=== PATIENT | female | born 1950 | race Caucasian/White ===

== ENCOUNTER → 2016-07-31 | Outpatient (CLI) | payer OTHER, MEDICARE ==
[~2016-07-31] MED LIST: ASPI81TA21 PO; ATEN50TA PO; CHOL100027 PO; FLUO20CA34 PO; IPRA1AER2 INH; LOSA1TAB38 PO; LSX20 PO; MOME200A INH; MULT-513 PO; NRV/5 PO; SIMV10TA2 PO
[2016-07-31 18:21] LABS: HEMATOCRIT 41.5 % (37-47); MEAN CELL VOLUME 90.4 fL (80-100); MEAN CORPUSCULAR HEMOGLOBIN 31.2 pg (25-34); MEAN CORPUSCULAR HGB CONC 34.5 g/dl (32-36); MEAN PLATELET VOLUME 10.6 fL (7.4-10.4); PLATELET COUNT 200 K/uL (130-400); RED BLOOD COUNT 4.59 M/uL (4.2-5.4); WHITE BLOOD COUNT 7.78 K/uL (4.8-10.8)
[2016-07-31 18:24] LABS: URINE APPEARANCE CLEAR (CLEAR); URINE BILIRUBIN NEG (NEG); URINE COLOR YELLOW; URINE NITRITE NEG (NEG); URINE SPECIFIC GRAVITY 1.016 (1.000-1.030); UROBILINOGEN NEG (NEG)
[2016-07-31 18:31] LABS: MANUAL MICROSCOPIC REQUIRED? NO; REVIEW REQ? NO
[2016-07-31 18:46] LABS: BLOOD UREA NITROGEN 14 mg/dl (7-18); BUN/CREATININE RATIO 11.1 (10-20); CALCIUM 8.9 mg/dl (8.5-10.1); CARBON DIOXIDE 29 mmol/L (21-32); CHLORIDE 106 mmol/L (98-107); GLUCOSE 104 mg/dl (70-99); PHOSPHORUS 3.3 mg/dl (2.5-4.9); POTASSIUM 3.8 mmol/L (3.5-5.1); SODIUM 144 mmol/L (136-145)
[2016-07-31 18:47] LABS: URINE PROTIEN/CREAT RATIO 0.1 (0-0.2); URINE TOTAL PROTEIN 8.8 mg/dl (0-11.9)
== END | disposition home or self-care (01) ==
LOC: C.LAB 17:47
PROVIDERS: ATTEND Internal Medicine Nephrology
DX: I12.9 Hypertensive chronic kidney disease with stage 1 through stage 4 chronic kidney disease, or unspecified chronic kidney disease (principal); N18.3 Chronic kidney disease, stage 3 (moderate); N20.0 Calculus of kidney; E55.9 Vitamin D deficiency, unspecified; Z11.59 Encounter for screening for other viral diseases

== ENCOUNTER → 2016-09-26 | Outpatient (CLI) | payer OTHER, MEDICARE | END | disposition home or self-care (01) | LOC: C.LAB 12:57 | PROVIDERS: ATTEND Physician Assistant Medical | DX: E04.2 Nontoxic multinodular goiter (principal) ==

== ENCOUNTER → 2016-10-08 | Outpatient (CLI) | payer OTHER, MEDICARE ==
--- NOTE | 2016-10-08 07:47 | DIAGNOSTIC IMAGING REPORT ---
KUB HISTORY: N20.0 [id number] COMPARISON: KUB 03/24/2015. FINDINGS: The bowel gas pattern is unremarkable. There are no dilated loops of small bowel to suggest an obstruction. There again noted a few punctate left renal calculi. No definite right renal calculi. No ureteral calculi. Small calcification within the left deep pelvis favors a phlebolith. No pneumoperitoneum or pneumatosis. IMPRESSION: Left-sided nephrolithiasis. Electronically signed by: Favio Cordon M.D. 10/08/2016 7:46 AM Dictated Date/Time: 10/08/2016 7:44 AM
== END | disposition home or self-care (01) ==
LOC: C.RAD 07:16
PROVIDERS: ATTEND Nurse Practitioner Adult Health
DX: N20.0 Calculus of kidney (principal)

== ENCOUNTER → 2016-11-06 | Outpatient (CLI) | payer OTHER, MEDICARE ==
--- NOTE | 2016-11-06 12:46 | MAMMOGRAPHY REPORT ---
BILATERAL DIGITAL SCREENING MAMMOGRAM WITH CAD: 11/06/2016 CLINICAL HISTORY: Routine screening. Patient has no complaints. TECHNIQUE: Bilateral CC and MLO views were obtained. Current study was also evaluated with a Compute r Aided Detection (CAD) system. COMPARISON: Comparison is made to exams dated: 11/02/2015 mammogram, 10/28/2014 mammogram, 10/21/2012 ma mmogram, 10/16/2011 mammogram, 10/10/2010 mammogram, and 09/01/2009 mammogram - [facility]. BREAST COMPOSITION: There are scattered areas of fibroglandular density in both breasts. FINDINGS: There is a benign rim calcification in the right upper outer quadrant. A stable circumscri bed reniform mass in the superior right breast on the MLO view most likely represents an intramammary lymph node. No suspicious mass, architectural distortion or cluster of suspicious microcalcificatio ns is seen. IMPRESSION: ACR BI-RADS CATEGORY 1: NEGATIVE There is no mammographic evidence of malignancy. A 1 year screening mammogram is recommended. The pa tient will receive written notification of the results. Approximately 10% of breast cancers are not detected with mammography. A negative mammographic report should not delay biopsy if a clinically suggestive mass is present. Tiffany Diamond M.D. ay/:11/06/2016 08:06:58 Critical Care Registered Nurse: Mana MCCURDY(Denis)(M), [facility] letter sent: Normal 1/2 BI-RADS Code: ACR BI-RADS Category 1: Negative
== END | disposition home or self-care (01) ==
LOC: C.MAMM 07:28
PROVIDERS: ATTEND Family Medicine
DX: Z12.31 Encounter for screening mammogram for malignant neoplasm of breast (principal)

== ENCOUNTER → 2017-02-07 | Outpatient (CLI) | payer OTHER, MEDICARE ==
[2017-02-07 18:02] LABS: HEMATOCRIT 40.3 % (37-47); MEAN CORPUSCULAR HEMOGLOBIN 31.3 pg (25-34); MEAN CORPUSCULAR HGB CONC 34.7 g/dl (32-36); MEAN PLATELET VOLUME 10.1 fL (7.4-10.4); PLATELET COUNT 209 K/uL (130-400); RED BLOOD COUNT 4.48 M/uL (4.2-5.4); WHITE BLOOD COUNT 7.25 K/uL (4.8-10.8)
[2017-02-07 18:15] LABS: URINE APPEARANCE CLOUDY (CLEAR); URINE BILIRUBIN NEG (NEG); URINE COLOR YELLOW; URINE EPITHELIAL CELL AUTO >30 /lpf (0-5); URINE NITRITE NEG (NEG); URINE SPECIFIC GRAVITY 1.024 (1.000-1.030); UROBILINOGEN NEG (NEG)
[2017-02-07 18:16] LABS: MANUAL MICROSCOPIC REQUIRED? NO; REVIEW REQ? NO
[2017-02-07 18:32] LABS: BLOOD UREA NITROGEN 16 mg/dl (7-18); BUN/CREATININE RATIO 13.4 (10-20); CALCIUM 8.5 mg/dl (8.5-10.1); CARBON DIOXIDE 30 mmol/L (21-32); CHLORIDE 109 mmol/L (98-107); GLUCOSE 95 mg/dl (70-99); PHOSPHORUS 2.9 mg/dl (2.5-4.9); POTASSIUM 3.8 mmol/L (3.5-5.1); SODIUM 141 mmol/L (136-145)
[2017-02-07 18:41] LABS: URINE PROTIEN/CREAT RATIO 0.1 (0-0.2)
== END | disposition home or self-care (01) ==
LOC: C.LAB 17:40
PROVIDERS: ATTEND Internal Medicine Nephrology
DX: I10 Essential (primary) hypertension (principal); N18.3 Chronic kidney disease, stage 3 (moderate); N20.0 Calculus of kidney; E55.9 Vitamin D deficiency, unspecified

== ENCOUNTER → 2017-08-12 | Outpatient (CLI) | payer OTHER, MEDICARE ==
[2017-08-12 09:40] LABS: HEMATOCRIT 40.3 % (37-47); HEMOGLOBIN 13.7 g/dL (12.0-16.0); MEAN CELL VOLUME 90.2 fL (80-100); MEAN CORPUSCULAR HEMOGLOBIN 30.6 pg (25-34); MEAN PLATELET VOLUME 10.2 fL (7.4-10.4); PLATELET COUNT 222 K/uL (130-400); RED CELL DISTRIBUTION WIDTH CV 13.3 % (11.5-14.5); WHITE BLOOD COUNT 7.15 K/uL (4.8-10.8)
[2017-08-12 10:04] LABS: ALBUMIN 3.6 gm/dl (3.4-5.0); BLOOD UREA NITROGEN 13 mg/dl (7-18); CALCIUM 8.4 mg/dl (8.5-10.1); CARBON DIOXIDE 27 mmol/L (21-32); CREATININE 1.15 mg/dl (0.60-1.20); GLUCOSE 103 mg/dl (70-99); PHOSPHORUS 3.4 mg/dl (2.5-4.9); POTASSIUM 3.9 mmol/L (3.5-5.1); SODIUM 139 mmol/L (136-145)
== END | disposition home or self-care (01) ==
LOC: C.LAB 07:12
PROVIDERS: ATTEND Internal Medicine Nephrology
DX: I12.9 Hypertensive chronic kidney disease with stage 1 through stage 4 chronic kidney disease, or unspecified chronic kidney disease (principal); R31.9 Hematuria, unspecified; N18.3 Chronic kidney disease, stage 3 (moderate); N20.0 Calculus of kidney; E55.9 Vitamin D deficiency, unspecified

== ENCOUNTER 2022-08-02 08:00 | Inpatient (IN) ==
--- NOTE | 2022-07-26 15:56 | Anesthesiology Consultation ---
Date of Service July 26, 2022 Assessment & Plan (1) Encounter for pre-operative examination: Plan - COVID screening: Per drafter on 07/26/2022: Travel screen negative, no known COVID-19 positive contacts or current COVID-19 related symptoms in past 2 weeks. To surgeon's discretion if preop COVID testing is needed. Chart Review Chart Review: Acceptable Risk for Surgery and Patient NOT seen in Pre Admission Testing History Surgery Operation Date: 08/02/22 14:20 Proposed Procedures p Laparoscopic Right Hemicolectomy, Possible Open Hemicolectomy - Jed Watson, Height/Weight Height: 5 ft 1.5 in Weight: 73.028 kg Allergies Allergy/AdvReac Type Severity Reaction Status Date / Time clavulanic acid Allergy Unknown Nausea Verified 07/26/22 15:08 [From Augmentin] amoxicillin [From Augmentin] AdvReac Unknown Nausea Verified 07/26/22 15:08 Medications Home Medications Medication Instructions Recorded Confirmed Last Taken albuterol sulfate 90 mcg/actuation 1 - 2 inh inhalation QID PRN 09/26/21 07/26/22 Unknown aerosol inhaler Shortness Of Breath #8.5 grams cholecalciferol (vitamin D3) 50 50 mcg PO QAM 10/23/21 07/26/22 07/08/22 09:00 mcg (2,000 unit) capsule amlodipine 5 mg tablet 5 mg PO QAM #90 tabs 03/26/22 07/26/22 07/08/22 09:00 furosemide 20 mg tablet 20 mg PO BID #180 tabs 06/11/22 07/26/22 07/08/22 17:00 sertraline 100 mg tablet 100 mg PO QAM 06/28/22 07/26/22 07/08/22 09:00 alendronate 70 mg tablet (Fosamax) 70 mg PO Q7D 07/03/22 07/26/22 07/08/22 09:00 atenolol 50 mg tablet 50 mg PO HS 07/03/22 07/26/22 07/08/22 09:00 losartan 100 mg tablet 100 mg PO HS 07/03/22 07/26/22 07/08/22 20:00 simvastatin 20 mg tablet 20 mg PO HS 07/03/22 07/26/22 07/08/22 20:00 Past Medical History Medical History Balance problem ONGOING FOR FEW YRS, "will be talking w/, since taking sertraline, has gotten a little worse" Chronic bronchitis HX-NO RECENT Chronic obstructive pulmonary disease (COPD) inhaler prn - NO RECENT FLARE UPS Colon cancer dx 07/09/[address] Shirley Depression with anxiety History of viral meningitis Hyperlipidemia Hypertension Kidney stones hx Osteoarthritis Stage III chronic kidney disease FOLLOWS W/ DR. MARSHALL Thyroid nodule monitoring-next appt. 09/2022 Past Family History Family History Sister Breast cancer Mother Ovarian cancer Father Alzheimer disease Small cell carcinoma Renal Other No family history of adverse response to anesthesia Denies family history of Prostate cancer Myocardial infarction Colorectal cancer Past Surgical History Surgical History (Updated 07/26/22 @ 15:54 by Alina Fernandez PA-C) History of cataract surgery B/L done 2021 History of colonoscopy History of D&C History of lithotripsy History of repair of right rotator cuff 07/14/19 LMA#4 + PNB. History of tooth extraction ALL TEETH S/P tonsillectomy Status post biopsy of thyroid gland HX BENIGN Social History Smoking Status: Current every day smoker tobacco type: cigarettes Smoking cigarettes per day: 20 Do You Dip or Chew Tobacco: No Hx Alcohol Use: Yes Alcohol type: hard liquor alcohol intake frequency: a few times a week Hx Substance Use: No substance use type: does not use Lab Results Anesthesia Preop Results Results Anesthesia Widget: WBC 6.57 K/ul (4.8-10.8) 07/24/22 Hgb 13.8 g/dl (12.0-16.0) 07/24/22 Hct 42.1 % (37.0-47.0) 07/24/22 Plt 187 K/uL (130-400) 07/24/22 Na 141 mmol/L (136-145) 07/24/22 K 3.9 mmol/L (3.5-5.1) 07/24/22 Cl 108 mmol/L (98-107) H 07/24/22 CO2 30 mmol/L (21-32) 07/24/22 BUN 15 mg/dl (6-23) 07/24/22 Creat 1.14 mg/dl (0.6-1.2) 07/24/22 Glucose Level 101 mg/dl (70-99(Fasting)) H 07/24/22 PT 9.9 Seconds (9.0-12.0) 07/10/22 INR 0.9 (0.9-1.1) 07/10/22 Urine Color Yellow 06/26/22 Urine Appearance Clear (Clear) 06/26/22 Urine pH 5.5 (4.5-7.5) 06/26/22 Urine Specific Skippers 1.006 (1.000-1.030) 06/26/22 Urine Protein Negative (Negative) 06/26/22 Urine Glucose (UA) Negative (Negative) 06/26/22 Urine Ketones Negative (Negative) 06/26/22 Urine Blood Negative (Negative) 06/26/22 Urine Nitrite Negative (Negative) 06/26/22 Urine Bilirubin Negative (Negative) 06/26/22 Urine Urobilinogen Negative (Negative) 06/26/22 Urine Leukocyte Esterase Negative (Negative) 06/26/22 Testing Electrocardiogram Date: 07/24/22 NSR, rate 62 bpm Other Testing Chest, abdomen and pelvis CT 07/17/22 Thyroid: Enlarged and heterogeneous. Thoracic aorta: There is atherosclerotic calcification of the thoracic aorta, which is normal in caliber and demonstrates standard 3-vessel arch anatomy. No dissection is seen. Pulmonary vasculature: The pulmonary trunk is normal in caliber. There are no filling defects identified in the central pulmonary vessels to indicate pulmonary embolus. Note that this examination was not protocoled for evaluation of the pulmonary arteries. Heart: The heart is enlarged and without pericardial effusion. There are coronary artery calcifications. Lungs and pleural spaces: There is no airspace consolidation or pleural effusion. The trachea and central airways appear clear. There are scattered foci of parenchymal scarring/atelectasis. A 2 mm nodule in the lingula on image #196 is unchanged. No new or enlarging pulmonary lesion is seen. A calcified granuloma is seen in the right lower lobe. Mediastinum: There is a 2.5 x 2.3 cm heterogeneously enhancing nodule in the anterior mediastinum seen on image #151. No additional mediastinal lesion is identified. Bony thorax: The skeletal structures are osteopenic. Mild degenerative change is seen throughout the thoracic spine. No lytic or blastic lesions are identified. ABDOMEN AND PELVIS: Liver: The contrast-enhanced liver is normal in size, contour, and attenuation. There is no intrahepatic biliary ductal dilatation. The hepatic veins and portal veins are patent. Gallbladder: There are calcified gallstone without CT evidence of acute cholecystitis. Adenomyomatosis is suggested in the fundal region. Kidneys: The contrast enhanced kidneys are normal in size and without hydronephrosis. The kidneys enhance symmetrically. A 9 mm indeterminate lesion arises from the upper pole of the left kidney on axial image #98. There are at least 2 nonobstructing left renal calculi which measure up to 4 mm. Abdominal vasculature: The abdominal aorta is normal in course and caliber no ting moderate to advanced atherosclerotic calcification. Bowel: There is no bowel obstruction. Enteric contrast reaches the rectum. There is moderate diverticulosis of left colon without CT evidence of acute diverticulitis. Wall thickening suggested at the base of the cecum on axial image #257. The appendix is well-visualized and normal. Peritoneum: There is no intraperitoneal free air or abdominal ascites. There is a fat-containing umbilical hernia. Pelvic viscera: The bladder is decompressed and not well assessed. The uterus is normal as visualized. A 2.5 cm simple cystic focus in the left ovary is unchanged, as is a 1.6 cm cystic focus in the right ovary. Skeletal structures: The skeletal structures are osteopenic. There is mild lumbosacral spondylosis. No lytic or blastic lesions are seen. IMPRESSION: 1. Asymmetric wall thickening is suggested at the base of the cecum. This may represent the site of the reported colonic neoplasm. Correlate with colonoscopy results. 2. There is no evidence of metastatic disease in the abdomen or pelvis. 3. There is an indeterminant 2.5 cm heterogeneously enhancing lesion in the anterior mediastinum. This would be atypical for an isolated colonic metastases, and a primary anterior mediastinal lesion such as a thymic neoplasm is strongly favored. Cardiothoracic surgical evaluation is recommended. 4. No additional suspicious findings are identified in the thorax. 5. There is no airspace consolidation or pleural effusion. 6. Mild cardiomegaly. 7. Colonic diverticulosis without CT evidence of acute diverticulitis. 8. Cholelithiasis. 9. Left-sided nephrolithiasis. 10. A 9 mm indeterminate lesion arises from the upper pole of the left kidney. An enhancing lesion is not excluded. A contrast-enhanced CT or renal protocol MRI is recommended for further evaluation. 11. Indeterminant cystic foci are again seen in both ovaries. 12. Additional findings as above. Chest CTA 04/24/22 1. No evidence of pulmonary embolism. 2. A few tiny pulmonary nodules are seen as above.
[~2022-08-02 08:00] MED LIST changes: +ACETAMINOPHEN 1000 MG/100 ML IV IV ONE; -ASPI81TA21 PO; -ATEN50TA PO; -CHOL100027 PO; +CIPROFLOXACIN / D5W 400 MG/200 ML BAG IV SCH; +FAMOTIDINE/PF 20 MG/2 ML VIAL IV ONE; -FLUO20CA34 PO; -IPRA1AER2 INH; +LACTATED RINGER'S 1,000 ML IV SCH; -LOSA1TAB38 PO; -LSX20 PO; -MOME200A INH; -MULT-513 PO; -NRV/5 PO; +ROCURONIUM BROMIDE 10 MG/ML 5 ML VIAL IV ONE; -SIMV10TA2 PO; +metroNIDAZOLE 500 MG/100 ML BAG IV SCH
--- NOTE | 2022-08-02 08:30 | History & Physical Bridge Note ---
Date of Service August 02, 2022 History & Physical Bridge Note I have examined the patient, reviewed the History & Physical and in the interval since the performance of the History & Physical I have noted the following changes of clinical significance: no changes noted
--- NOTE | 2022-08-02 08:56 | Anesthesiology Consultation ---
Date of Service August 02, 2022 Assessment & Plan Chart Review Chart Review: Acceptable Risk for Surgery Consults Requested none ASA ASA3 Proposed Anesthesia Anesthesia Type: General History Surgery Operation Date: 08/02/22 10:05 Proposed Procedures p Laparoscopic Right Hemicolectomy, Possible Open Hemicolectomy - Jed Watson, DO Height/Weight Height: 5 ft 1.5 in Weight: 73.028 kg Allergies Allergy/AdvReac Type Severity Reaction Status Date / Time amoxicillin [From Augmentin] AdvReac Mild Nausea Verified 08/02/22 08:36 clavulanic acid AdvReac Mild Nausea Verified 08/02/22 08:36 [From Augmentin] Medications Home Medications Medication Instructions Recorded Confirmed Last Taken albuterol sulfate 90 mcg/actuation 1 - 2 inh inhalation QID PRN 09/26/21 08/02/22 Unknown aerosol inhaler Shortness Of Breath #8.5 grams cholecalciferol (vitamin D3) 50 50 mcg PO QAM 10/23/21 08/02/22 08/01/22 12:00 mcg (2,000 unit) capsule amlodipine 5 mg tablet 5 mg PO QAM #90 tabs 03/26/22 08/02/22 08/01/22 12:00 furosemide 20 mg tablet 20 mg PO BID #180 tabs 06/11/22 08/02/22 08/01/22 20:00 sertraline 100 mg tablet 100 mg PO QAM 06/28/22 08/02/22 08/01/22 12:00 alendronate 70 mg tablet (Fosamax) 70 mg PO Q7D 07/03/22 08/02/22 07/29/22 12:00 losartan 100 mg tablet 100 mg PO HS 07/03/22 08/02/22 08/01/22 20:00 simvastatin 20 mg tablet 20 mg PO HS 07/03/22 08/02/22 08/01/22 20:00 atenolol 50 mg tablet 50 mg PO HS #90 tabs 07/31/22 08/02/22 08/01/22 20:00 Active Medications Generic Name Dose Route Start Last Admin Trade Name Freq PRN Reason Stop Dose Admin Lactated Ringer's 1,000 mls @ 15 mls/hr 08/02/22 06:00 08/02/22 09:10 Lr IV 08/03/22 05:59 15 mls/hr .Q24H ZOE Administration Past Medical History Medical History Balance problem ONGOING FOR FEW YRS, "will be talking w/, since taking sertraline, has gotten a little worse" Chronic bronchitis HX-NO RECENT Chronic obstructive pulmonary disease (COPD) inhaler prn - NO RECENT FLARE UPS Colon cancer dx 07/09/[address] Case Depression with anxiety History of viral meningitis Hyperlipidemia Hypertension Kidney stones hx Osteoarthritis Stage III chronic kidney disease FOLLOWS W/ DR. MARSHALL Thyroid nodule monitoring-next appt. 09/2022 Past Family History Family History Sister Breast cancer Mother Ovarian cancer Father Alzheimer disease Small cell carcinoma Renal Other No family history of adverse response to anesthesia Denies family history of Prostate cancer Myocardial infarction Colorectal cancer Past Surgical History Surgical History History of cataract surgery B/L done 2021 History of colonoscopy History of D&C History of lithotripsy History of repair of right rotator cuff 07/14/19 LMA#4 + PNB. History of tooth extraction ALL TEETH S/P tonsillectomy Status post biopsy of thyroid gland HX BENIGN Social History Smoking Status: Current every day smoker tobacco type: cigarettes Smoking cigarettes per day: 20 Do You Dip or Chew Tobacco: No Hx Alcohol Use: Yes Alcohol type: hard liquor alcohol intake frequency: a few times a week Hx Substance Use: No substance use type: does not use Physical Exam Vital Signs Last Vital Signs Temp 36.7 C 08/02/22 08:47 Pulse 83 08/02/22 08:47 Resp 20 08/02/22 08:47 BP 123/66 08/02/22 08:47 Pulse Ox 95 08/02/22 08:47 O2 Del Method Room Air 08/02/22 08:47 Testing Electrocardiogram Date: 07/24/22 NSR, rate 62 bpm Other Testing Chest, abdomen and pelvis CT 07/17/22 Thyroid: Enlarged and heterogeneous. Thoracic aorta: There is atherosclerotic calcification of the thoracic aorta, which is normal in caliber and demonstrates standard 3-vessel arch anatomy. No dissection is seen. Pulmonary vasculature: The pulmonary trunk is normal in caliber. There are no filling defects identified in the central pulmonary vessels to indicate pulmonary embolus. Note that this examination was not protocoled for evaluation of the pulmonary arteries. Heart: The heart is enlarged and without pericardial effusion. There are coronary artery calcifications. Lungs and pleural spaces: There is no airspace consolidation or pleural effusion. The trachea and central airways appear clear. There are scattered foci of parenchymal scarring/atelectasis. A 2 mm nodule in the lingula on image #196 is unchanged. No new or enlarging pulmonary lesion is seen. A calcified granuloma is seen in the right lower lobe. Mediastinum: There is a 2.5 x 2.3 cm heterogeneously enhancing nodule in the anterior mediastinum seen on image #151. No additional mediastinal lesion is identified. Bony thorax: The skeletal structures are osteopenic. Mild degenerative change is seen throughout the thoracic spine. No lytic or blastic lesions are identified. ABDOMEN AND PELVIS: Liver: The contrast-enhanced liver is normal in size, contour, and attenuation. There is no intrahepatic biliary ductal dilatation. The hepatic veins and portal veins are patent. Gallbladder: There are calcified gallstone without CT evidence of acute cholecystitis. Adenomyomatosis is suggested in the fundal region. Kidneys: The contrast enhanced kidneys are normal in size and without hydronephrosis. The kidneys enhance symmetrically. A 9 mm indeterminate lesion arises from the upper pole of the left kidney on axial image #98. There are at least 2 nonobstructing left renal calculi which measure up to 4 mm. Abdominal vasculature: The abdominal aorta is normal in course and caliber noting moderate to advanced atherosclerotic calcification. Bowel: There is no bowel obstruction. Enteric contrast reaches the rectum. There is moderate diverticulosis of left colon without CT evidence of acute diverticulitis. Wall thickening suggested at the base of the cecum on axial image #257. The appendix is well-visualized and normal. Peritoneum: There is no intraperitoneal free air or abdominal ascites. There is a fat-containing umbilical hernia. Pelvic viscera: The bladder is decompressed and not well assessed. The uterus is normal as visualized. A 2.5 cm simple cystic focus in the left ovary is unchanged, as is a 1.6 cm cystic focus in the right ovary. Skeletal structures: The skeletal structures are osteopenic. There is mild lumbosacral spondylosis. No lytic or blastic lesions are seen. IMPRESSION: 1. Asymmetric wall thickening is suggested at the base of the cecum. This may represent the site of the reported colonic neoplasm. Correlate with colonoscopy results. 2. There is no evidence of metastatic disease in the abdomen or pelvis. 3. There is an indeterminant 2.5 cm heterogeneously enhancing lesion in the anterior mediastinum. This would be atypical for an isolated colonic metastases, and a primary anterior mediastinal lesion such as a thymic neoplasm is strongly favored. Cardiothoracic surgical evaluation is recommended. 4. No additional suspicious findings are identified in the thorax. 5. There is no airspace consolidation or pleural effusion. 6. Mild cardiomegaly. 7. Colonic diverticulosis without CT evidence of acute diverticulitis. 8. Cholelithiasis. 9. Left-sided nephrolithiasis. 10. A 9 mm indeterminate lesion arises from the upper pole of the left kidney. An enhancing lesion is not excluded. A contrast-enhanced CT or renal protocol MRI is recommended for further evaluation. 11. Indeterminant cystic foci are again seen in both ovaries. 12. Additional findings as above. Chest CTA 04/24/22 1. No evidence of pulmonary embolism. 2. A few tiny pulmonary nodules are seen as above.
[2022-08-02] MEDS ORDERED: MIDAZOLAM HCL 1 MG/ML 2ML VIAL ONE (10:30)
[2022-08-02] MEDS ORDERED: fentaNYL citrate 100 MCG/2 ML VIAL ONE ×2 (10:32→12:03)
[2022-08-02] MEDS ORDERED: LIDOCAINE 2% MPF LOCAL 5 ML VIAL INFIL ONE (10:33)
[2022-08-02] MEDS ORDERED: PROPOFOL IV EMULSION 10 MG/ML 20 ML VIAL IV ONE (10:34)
[2022-08-02] MEDS ORDERED: DEXAMETHASONE SOD INJ 4 MG/ML VIAL ONE (10:34)
[2022-08-02] MEDS ORDERED: ONDANSETRON INJ 2 MG/ML 2 ML VIAL ONE (10:34)
[2022-08-02] MEDS ORDERED: BUPIVACAINE/EPINEPHRINE 0.5% MPF 1:200,000 30 ML VIAL ONE (10:36)
[2022-08-02] MEDS ORDERED: SUGAMMADEX SODIUM 200 MG/2 ML VIAL IV ONE (12:36)
--- NOTE | 2022-08-02 13:01 | Operative Report ---
PG Post Operative Report Pre & Post Diagnosis Operation Date: 08/02/22 10:05 Pre-Op Diagnosis: Colon Cancer Post-Op Diagnosis: Colon Cancer I identified the patient and participated in the time-out.: Yes Procedure Operation Date: 08/02/22 10:05 Actual Procedures p Laparoscopic Right Hemicolectomy(Right) - Jed Watson DO Surgeon Jed Watson DO Area Cleaner ayana Qureshi Estimated Blood Loss 20 Findings Consistent with Post-Op Diagnosis Specimens terminal ileum, right colon, portion of transverse colon Description of Procedure After informed consent was obtained the patient was taken to the operating room and placed in supine position. After successful intubation an orogastric tube as well as Laguerre catheter were both placed. The abdomen was then sterilely prepped and draped in usual fashion. I began with a periumbilical incision with an 11 blade scalpel and carried this down through the soft tissue using cautery. Anterior fascia was opened using cautery and two #0 Vicryl stay sutures were placed. Peritoneum was elevated with hemostats and incised under direct vision using a Metzenbaum scissor. A finger sweep was performed. A 12 mm Mooney trocar was placed and the abdomen was insufflated to 18 mmHg. Laparoscope was inserted and the abdomen examined 360 degrees. A suprapubic 5 mm port and a left lower quadrant 12 mm port and eventually a right upper quadrant 5 mm port would all be placed under direct visualization. The patient was placed in a Trendelenburg position and slightly airplaned to the left. I evaluated the cecum. I was unable to palpate the mass itself. I began by mobilizing laterally along the white line of Toldt using blunt dissection as well as small amounts of harmonic scalpel. Once I had the right colon freed up around the hepatic flexure I then transected the terminal ileum several inches proximal to the cecum using a CIELO brown cartridge 60 mm stapler. I then began taking down the mesentery of the right colon using the harmonic scalpel. Next I found a spot on the transverse colon proximal to the middle colic vessels and transected the colon using a CIELO brown cartridge 60 mm stapler. I divided the omentum using the harmonic scalpel. I then freed up the hepatic flexure again using primarily blunt dissection. I took down the remainder of the transverse colon and right colon mesentery again using the harmonic scalpel. This freed up the entire terminal ileum cecum right colon and proximal transverse colon. We then extended the right upper quadrant trocar site including the fascia. I was able to remove the entire specimen. I did open it on the back table to be sure the mass was in there. It was right in the cecum near the terminal ileum. I then rescrubbed. Next I was able to deliver the staple line of the transverse colon as well as the staple line of the distal ileum through the extended incision. I performed a [id number] anastomosis using a CIELO 60 mm brown cartridge. I hand closed the common enterotomy using 3-0 Monocryl in a running fashion for mucosal/serosal layers followed by 3-0 silk in Lembert fashion for serosal layer. I also placed 3-0 silk crotch stitch. We then placed the anastomosis back into the abdominal cavity and both changed our gloves. I closed the fascia of this incision using 0 PDS in running fashion. I then reinsufflated the abdomen and examined the anastomosis. It was intact without tension. There was no mesenteric twisting. There was adequate hemostasis. I did irrigate the right upper quadrant right lower quadrant and pelvis. All the trocars were subsequently removed and the abdomen desufflated. The fascia of the camera port was closed using 0 Vicryl in [id number] fashion. All the wounds were irrigated. The larger incision I closed over quarter inch Esbon drain using skin radha. The remainder of the incisions were closed using skin radha. Dressings were applied. The patient was awakened extubated and transferred recovery in stable condition. My physician assistant clinical nurse manager was present for the entire case. She was instrumental in providing exposure running the camera assisting with the anastomosis wound closure and dressing placement. I attest to the content of the Intraoperative Record and any orders documented therein. Any exceptions are noted below.
--- NOTE | 2022-08-02 13:02 | Anesthesiology Consultation ---
Date of Service August 02, 2022 Assessment & Plan Chart Review Chart Review: Acceptable Risk for Surgery Consults Requested none ASA ASA3 Proposed Anesthesia Anesthesia Type: General Risk / Benefits Reviewed With: PT / POA / Parent / Guardian, Accepts Plan and Informed Consent Obtained History Surgery Operation Date: 08/02/22 10:05 Proposed Procedures p Laparoscopic Right Hemicolectomy, Possible Open Hemicolectomy - Jed Watson, DO Height/Weight Height: 5 ft 1.5 in Weight: 73.028 kg Allergies Allergy/AdvReac Type Severity Reaction Status Date / Time amoxicillin [From Augmentin] AdvReac Mild Nausea Verified 08/02/22 08:36 clavulanic acid AdvReac Mild Nausea Verified 08/02/22 08:36 [From Augmentin] Medications Home Medications Medication Instructions Recorded Confirmed Last Taken albuterol sulfate 90 mcg/actuation 1 - 2 inh inhalation QID PRN 09/26/21 08/02/22 Unknown aerosol inhaler Shortness Of Breath #8.5 grams cholecalciferol (vitamin D3) 50 50 mcg PO QAM 10/23/21 08/02/22 08/01/22 12:00 mcg (2,000 unit) capsule amlodipine 5 mg tablet 5 mg PO QAM #90 tabs 03/26/22 08/02/22 08/01/22 12:00 furosemide 20 mg tablet 20 mg PO BID #180 tabs 06/11/22 08/02/22 08/01/22 20:00 sertraline 100 mg tablet 100 mg PO QAM 06/28/22 08/02/22 08/01/22 12:00 alendronate 70 mg tablet (Fosamax) 70 mg PO Q7D 07/03/22 08/02/22 07/29/22 12:00 losartan 100 mg tablet 100 mg PO HS 07/03/22 08/02/22 08/01/22 20:00 simvastatin 20 mg tablet 20 mg PO HS 07/03/22 08/02/22 08/01/22 20:00 atenolol 50 mg tablet 50 mg PO HS #90 tabs 07/31/22 08/02/22 08/01/22 20:00 Active Medications Generic Name Dose Route Start Last Admin Trade Name Freq PRN Reason Stop Dose Admin Lactated Ringer's 1,000 mls @ 15 mls/hr 08/02/22 06:00 08/02/22 10:40 Lr IV 08/03/22 05:59 Infused .Q24H ZOE Infusion Ciprofloxacin 400 mg in 200 mls @ 100 mls/hr 08/02/22 06:00 08/02/22 10:40 Cipro / D5w IV 08/02/22 18:00 100 mls/hr PREOP ZOE Administration Past Medical History Medical History Balance problem ONGOING FOR FEW YRS, "will be talking w/dr, since taking sertraline, has gotten a little worse" Chronic bronchitis HX-NO RECENT Chronic obstructive pulmonary disease (COPD) inhaler prn - NO RECENT FLARE UPS Colon cancer dx 07/09/[address] Case Depression with anxiety History of viral meningitis Hyperlipidemia Hypertension Kidney stones hx Osteoarthritis Stage III chronic kidney disease FOLLOWS W/ DR. MARSHALL Thyroid nodule monitoring-next appt. 09/2022 Exercise / Class Metabolic Activity II 4-5 Yardwork/Stairs/Walk up hill Past Family History Family History Sister Breast cancer Mother Ovarian cancer Father Alzheimer disease Small cell carcinoma Renal Other No family history of adverse response to anesthesia Denies family history of Prostate cancer Myocardial infarction Colorectal cancer Past Surgical History Surgical History History of cataract surgery B/L done 2021 History of colonoscopy History of D&C History of lithotripsy History of repair of right rotator cuff 07/14/19 LMA#4 + PNB. History of tooth extraction ALL TEETH S/P tonsillectomy Status post biopsy of thyroid gland HX BENIGN Past Anesthesia History No Hx of Anesthesia Complications and No Family Hx of Anesthesia Complications History of PONV No Hx of PONV and No Hx of Motion Sickness Social History Smoking Status: Current every day smoker tobacco type: cigarettes Smoking cigarettes per day: 20 Do You Dip or Chew Tobacco: No Hx Alcohol Use: Yes Alcohol type: hard liquor alcohol intake frequency: a few times a week Hx Substance Use: No substance use type: does not use Physical Exam Vital Signs Last Vital Signs Temp 36.7 C 08/02/22 08:47 Pulse 83 08/02/22 08:47 Resp 20 08/02/22 08:47 BP 123/66 08/02/22 08:47 Pulse Ox 95 08/02/22 08:47 O2 Del Method Room Air 08/02/22 08:47 Constitutional no acute distress ENMT Thyromental Distance: > or= 3.5 Finger Breadths Mallampati Class: II Neck normal visual inspection Respiratory normal respiratory effort; no respiratory distress Auscultation: lungs clear to auscultation bilaterally Cardiovascular Rate/Rhythm: regular rate and regular rhythm Heart Sounds: no murmur Psychiatric Orientation: alert and oriented x 3 Testing Laboratory Results Blood Type B Positive 08/02/22 08:41 Antibody Screen NEGATIVE 08/02/22 08:41 Electrocardiogram Date: 07/24/22 NSR, rate 62 bpm Other Testing Chest, abdomen and pelvis CT 07/17/22 Thyroid: Enlarged and heterogeneous. Thoracic aorta: There is atherosclerotic calcification of the thoracic aorta, which is normal in caliber and demonstrates standard 3-vessel arch anatomy. No dissection is seen. Pulmonary vasculature: The pulmonary trunk is normal in caliber. There are no filling defects identified in the central pulmonary vessels to indicate pulmonary embolus. Note that this examination was not protocoled for evaluation of the pulmonary arteries. Heart: The heart is enlarged and without pericardial effusion. There are gurwinder nary artery calcifications. Lungs and pleural spaces: There is no airspace consolidation or pleural effusion. The trachea and central airways appear clear. There are scattered foci of parenchymal scarring/atelectasis. A 2 mm nodule in the lingula on image #196 is unchanged. No new or enlarging pulmonary lesion is seen. A calcified granuloma is seen in the right lower lobe. Mediastinum: There is a 2.5 x 2.3 cm heterogeneously enhancing nodule in the anterior mediastinum seen on image #151. No additional mediastinal lesion is identified. Bony thorax: The skeletal structures are osteopenic. Mild degenerative change is seen throughout the thoracic spine. No lytic or blastic lesions are identified. ABDOMEN AND PELVIS: Liver: The contrast-enhanced liver is normal in size, contour, and attenuation. There is no intrahepatic biliary ductal dilatation. The hepatic veins and portal veins are patent. Gallbladder: There are calcified gallstone without CT evidence of acute cholecystitis. Adenomyomatosis is suggested in the fundal region. Kidneys: The contrast enhanced kidneys are normal in size and without hydronephrosis. The kidneys enhance symmetrically. A 9 mm indeterminate lesion arises from the upper pole of the left kidney on axial image #98. There are at least 2 nonobstructing left renal calculi which measure up to 4 mm. Abdominal vasculature: The abdominal aorta is normal in course and caliber noting moderate to advanced atherosclerotic calcification. Bowel: There is no bowel obstruction. Enteric contrast reaches the rectum. There is moderate diverticulosis of left colon without CT evidence of acute diverticulitis. Wall thickening suggested at the base of the cecum on axial image #257. The appendix is well-visualized and normal. Peritoneum: There is no intraperitoneal free air or abdominal ascites. There is a fat-containing umbilical hernia. Pelvic viscera: The bladder is decompressed and not well assessed. The uterus is normal as visualized. A 2.5 cm simple cystic focus in the left ovary is unchanged, as is a 1.6 cm cystic focus in the right ovary. Skeletal structures: The skeletal structures are osteopenic. There is mild lumbosacral spondylosis. No lytic or blastic lesions are seen. IMPRESSION: 1. Asymmetric wall thickening is suggested at the base of the cecum. This may represent the site of the reported colonic neoplasm. Correlate with colonoscopy results. 2. There is no evidence of metastatic disease in the abdomen or pelvis. 3. There is an indeterminant 2.5 cm heterogeneously enhancing lesion in the anterior mediastinum. This would be atypical for an isolated colonic metastases, and a primary anterior mediastinal lesion such as a thymic neoplasm is strongly favored. Cardiothoracic surgical evaluation is recommended. 4. No additional suspicious findings are identified in the thorax. 5. There is no airspace consolidation or pleural effusion. 6. Mild cardiomegaly. 7. Colonic diverticulosis without CT evidence of acute diverticulitis. 8. Cholelithiasis. 9. Left-sided nephrolithiasis. 10. A 9 mm indeterminate lesion arises from the upper pole of the left kidney. An enhancing lesion is not excluded. A contrast-enhanced CT or renal protocol MRI is recommended for further evaluation. 11. Indeterminant cystic foci are again seen in both ovaries. 12. Additional findings as above. Chest CTA 04/24/22 1. No evidence of pulmonary embolism. 2. A few tiny pulmonary nodules are seen as above.
[2022-08-02] MEDS ORDERED: ATROPINE SULFATE 0.1 MG/ML 10ML SYR IV PRN (13:08)
[2022-08-02] MEDS ORDERED: ONDANSETRON INJ 2 MG/ML 2 ML VIAL IV PRN (13:08)
[2022-08-02] MEDS ORDERED: ePHEDrine sulfate 50 MG/ML AMP IV PRN (13:08)
[2022-08-02] MEDS ORDERED: HYDROmorphone INJ 1 MG/ML SYRINGE ONE (13:12)
[2022-08-02] MEDS: HYDROmorphone INJ 1 MG/ML SYRINGE IV PRN ×4 (13:15→13:30)
--- NOTE | 2022-08-02 13:54 | Anesthesiology Progress Note ---
Date of Service August 02, 2022 Anesthesia Post Procedure Vital Signs Vital Signs: Temp Pulse Resp BP Pulse Ox O2 Del Method O2 Flow Rate 08/02/22 13:25 83 18 146/80 H 96 Oxymask 3 08/02/22 13:15 82 20 165/75 H 98 Oxymask 5 08/02/22 13:45 36.6 C 88 23 146/68 H 95 Nasal Cannula 2 08/02/22 13:35 36.6 C 82 17 143/70 H 95 Oxymask 2 08/02/22 13:05 82 19 166/92 H 100 Oxymask 5 08/02/22 12:56 36.5 C 83 22 163/85 H 100 Oxymask 7 08/02/22 08:47 36.7 C 83 20 123/66 95 Room Air Pain Intensity Abdomen: Pain Intensity: 2 Transfer of Care Handoff Completed per policy Notes Mental Status: alert / awake / arousable and participated in evaluation Nausea / Vomiting: adequately controlled Pain: adequately controlled Airway Patency, RR, SpO2: stable & adequate BP & HR: stable & adequate Hydration State: stable & adequate Anesthetic Complications: no major complications apparent and Pt Satisfied with anesthetic care
[2022-08-02] MEDS ORDERED: MoRPHine SULFATE 2 MG/ML CARP IV PRN (14:11)
[2022-08-02] MEDS ORDERED: MoRPHine SULFATE 4 MG/ML 1 ML CARP\\VIAL IV PRN (14:11)
[2022-08-02] MEDS ORDERED: ALBUTEROL HFA 8 GM INHALER INH PRN (14:11)
[2022-08-02] MEDS ORDERED: oxyCODONE HCL IR 5 MG TAB (IMMEDIATE RELEASE) PO PRN (14:11)
[2022-08-02] MEDS: LACTATED RINGER'S 1,000 ML IV SCH ×2 (14:19→22:37)
[2022-08-02] MEDS: ACETAMINOPHEN 1,000 MG/100 ML VIAL IV SCH ×2 (14:30→22:38)
[2022-08-02] MEDS: cefOXitin 2,000 MG in DEXTROSE 5% 50 ML IV SCH ×2 (14:41→20:47)
[2022-08-02] MEDS: ATENOLOL 50 MG TABLET PO SCH (20:55)
[2022-08-03] MEDS: cefOXitin 2,000 MG in DEXTROSE 5% 50 ML IV SCH ×2 (02:45→09:38)
[2022-08-03] MEDS: ACETAMINOPHEN 1,000 MG/100 ML VIAL IV SCH ×3 (05:55→22:30)
[2022-08-03] MEDS: LACTATED RINGER'S 1,000 ML IV SCH ×2 (06:43→16:49)
[2022-08-03 06:54] LABS: Basophils # (auto) 0.02 K/uL (0-0.2); Basophils % (auto) 0.2 %; Hematocrit (blood only) 34.9 % (37.0-47.0); Hemoglobin 11.4 g/dl (12.0-16.0); Immature Granulocytes # (auto) 0.03 K/uL (0.01-0.20); Immature Granulocytes % (auto) 0.3 %; Lymphocytes # (auto) 1.81 K/uL (1.2-3.4); Lymphocytes % (auto) 17.3 %; Mean Corpuscular Hemoglobin 29.1 pg (25.0-34.0); Mean Corpuscular Hgb Conc 32.7 g/dL (32.0-36.0); Mean Platelet Volume 11.2 fL (9.4-12.4); Monocytes # (auto) 1.06 K/uL (0.11-0.59); Monocytes % (auto) 10.2 %; Neutrophils # (auto) 7.52 K/uL (1.40-6.50); Platelet Count 174 K/uL (130-400); RDW Coefficient of Variation 13.4 % (11.5-14.5); RDW Standard Deviation 43.8 fL (36.4-46.3); Red Blood Count 3.92 M/uL (4.20-5.40); White Blood Count 10.44 K/ul (4.8-10.8)
[2022-08-03 07:46] LABS: BUN Creatinine Ratio 7.8 (10-20); Calcium 8.6 mg/dl (8.5-10.1); Creatinine Clr Calc Pharmacy 36.2 ml/min; Est GFR (Non-African American) 41.4 ml/min; Potassium 3.8 mmol/L (3.5-5.1)
[2022-08-03] MEDS: SERTRALINE HCL 100 MG TABLET PO SCH (09:20)
[2022-08-03] MEDS: amLODIPine BESYLATE 5 MG TAB PO SCH (09:21)
--- NOTE | 2022-08-03 09:44 | Surgery Progress Note ---
Date of Service August 03, 2022 Assessment & Plan (1) Colon cancer: Plan: Postoperative day #1 Doing as expected We will stay on clears until return of bowel function. Pain control adequate [facility] covering for the weekend if any problems or questions Admission and Anticipated Discharge Date Admission Date: August 02, 2022 Subjective Patient seen. Having some incisional discomfort but nothing unexpected. Denies nausea. Physical Exam Physical Exam: Alert. No acute distress Abdomen soft with expected incisional tenderness. Incisions are all clean dry and Results & Data ([facility]) Vital Signs (Past 12 Hours) Vital Signs Temp Pulse Pulse Resp BP BP Pulse Ox 08/03/22 08:02 36.7 C 64 18 121/68 96 08/03/22 07:54 08/03/22 06:00 36.9 C 67 18 102/52 L 94 08/03/22 02:45 37.2 C 74 16 107/66 94 O2 Del Method O2 Flow Rate 08/03/22 08:02 Nasal Cannula 2 08/03/22 07:54 Nasal Cannula 2 08/03/22 06:00 Nasal Cannula 2 08/03/22 02:45 Nasal Cannula 2 PG Care Time/CCT Total # of Minutes Spent Total Time Spent with Patient: Total time spent is greater than 50% in coordination of care (as documented) at patient's floor/unit and/or counseling patient: Coding Level of Care Code 03110 Post Operative Follow-Up Diagnoses Colon cancer C18.9
[2022-08-03] MEDS: oxyCODONE HCL IR 5 MG TAB (IMMEDIATE RELEASE) PO PRN (16:46)
[2022-08-03] MEDS: ATENOLOL 50 MG TABLET PO SCH (22:30)
[2022-08-04] MEDS: oxyCODONE HCL IR 5 MG TAB (IMMEDIATE RELEASE) PO PRN (01:51)
[2022-08-04] MEDS: LACTATED RINGER'S 1,000 ML IV SCH ×2 (05:07→15:21)
[2022-08-04] MEDS: ACETAMINOPHEN 1,000 MG/100 ML VIAL IV SCH ×3 (05:57→21:43)
[2022-08-04 06:41] LABS: Basophils # (auto) 0.04 K/uL (0-0.2); Basophils % (auto) 0.3 %; Eosinophils # (auto) 0.09 K/uL (0-0.50); Eosinophils % (auto) 0.7 %; Hemoglobin 12.9 g/dl (12.0-16.0); Immature Granulocytes # (auto) 0.05 K/uL (0.01-0.20); Immature Granulocytes % (auto) 0.4 %; Lymphocytes % (auto) 12.3 %; Mean Corpuscular Hemoglobin 29.6 pg (25.0-34.0); Mean Corpuscular Hgb Conc 33.9 g/dL (32.0-36.0); Mean Corpuscular Volume 87.2 fL (80.0-100.0); Mean Platelet Volume 11.6 fL (9.4-12.4); Monocytes # (auto) 1.17 K/uL (0.11-0.59); Neutrophils # (auto) 10.01 K/uL (1.40-6.50); Neutrophils % (auto) 77.3 %; Platelet Count 163 K/uL (130-400); RDW Coefficient of Variation 13.6 % (11.5-14.5); RDW Standard Deviation 43.3 fL (36.4-46.3); Red Blood Count 4.36 M/uL (4.20-5.40); White Blood Count 12.96 K/ul (4.8-10.8)
[2022-08-04] MEDS: SERTRALINE HCL 100 MG TABLET PO SCH (08:30)
[2022-08-04] MEDS: amLODIPine BESYLATE 5 MG TAB PO SCH (08:31)
[2022-08-04] MEDS: ENOXAPARIN INJ 40 MG/0.4 ML SYR SQ SCH (08:40)
[2022-08-04 09:00] LABS: Calcium 8.6 mg/dl (8.5-10.1); Potassium 3.6 mmol/L (3.5-5.1)
[2022-08-04 09:06] LABS: BUN Creatinine Ratio 8.2 (10-20); Creatinine Clr Calc Pharmacy 42.1 ml/min; Est GFR (African American) 57.7 ml/min; Est GFR (Non-African American) 49.8 ml/min
--- NOTE | 2022-08-04 09:23 | Surgery Progress Note ---
Date of Service August 04, 2022 Assessment & Plan (1) Colon cancer: Plan: s/p lap R colon POD#2 doing OK begin dressings con't clears ambulate Admission and Anticipated Discharge Date Admission Date: August 02, 2022 Subjective pain controlled, worse with movement small BMs good BS not hungry dressings removed look good Review of Systems Constitutional: no fever and no chills Respiratory: no dyspnea Cardiovascular: no chest pain Gastrointestinal: + abdominal pain; no nausea and no vomiting Genitourinary: no dysuria Neurologic: no generalized weakness Physical Exam Constitutional: WD/WN, vitals as above Eyes: PERRL, conjunctivae normal, anicteric sclerae ENMT: external ear and nose normal, oropharynx normal Neck: trachea midline Respiratory: normal respiratory effort, lungs clear to auscultation Cardiovascular: RRR, no murmur, no edema Gastrointestinal (Abdomen): Inspection/Auscultation: abdomen normal to inspection, + abdomen distended, normal bowel sounds and + abdominal surgical incision (clean and dry) Percussion/Palpation: + abdomen tender and abdomen soft; no guarding and abdomen not rigid Musculoskeletal: Head/Neck/Chest: normocephalic and head atraumatic Results & Data ([facility]) Vital Signs (Past 12 Hours) Vital Signs Temp Pulse Pulse Resp BP BP Pulse Ox 08/04/22 08:57 22 94 08/04/22 08:50 89 L 08/04/22 07:35 36.7 C 54 L 22 130/60 130/60 86 L 08/04/22 07:26 37.1 C 64 17 123/68 91 08/03/22 22:22 37.0 C 69 18 107/58 L 94 O2 Del Method O2 Flow Rate 08/04/22 08:57 Nasal Cannula 2 08/04/22 08:50 Room Air 08/04/22 07:35 Room Air 08/04/22 07:26 Room Air 08/03/22 22:22 Nasal Cannula 2
[2022-08-04] MEDS: ONDANSETRON INJ 2 MG/ML 2 ML VIAL IV PRN (12:34)
[2022-08-04] MEDS: PROMETHAZINE HCL 12.5 MG in SODIUM CHLORIDE 0.9% 50 ML IV PRN (15:18)
[2022-08-04] MEDS: ATENOLOL 50 MG TABLET PO SCH (21:51)
[2022-08-05] MEDS: ONDANSETRON INJ 2 MG/ML 2 ML VIAL IV PRN ×2 (00:48→06:03)
[2022-08-05] MEDS: LACTATED RINGER'S 1,000 ML IV SCH ×2 (04:15→15:30)
[2022-08-05] MEDS: ACETAMINOPHEN 1,000 MG/100 ML VIAL IV SCH (06:01)
[2022-08-05 06:57] LABS: Basophils # (auto) 0.03 K/uL (0-0.2); Basophils % (auto) 0.3 %; Eosinophils # (auto) 0.16 K/uL (0-0.50); Eosinophils % (auto) 1.4 %; Hemoglobin 13.1 g/dl (12.0-16.0); Immature Granulocytes # (auto) 0.04 K/uL (0.01-0.20); Immature Granulocytes % (auto) 0.4 %; Lymphocytes # (auto) 1.77 K/uL (1.2-3.4); Lymphocytes % (auto) 15.6 %; Mean Corpuscular Hemoglobin 29.5 pg (25.0-34.0); Mean Corpuscular Hgb Conc 33.6 g/dL (32.0-36.0); Mean Corpuscular Volume 87.8 fL (80.0-100.0); Mean Platelet Volume 11.6 fL (9.4-12.4); Monocytes # (auto) 0.97 K/uL (0.11-0.59); Monocytes % (auto) 8.5 %; Neutrophils # (auto) 8.39 K/uL (1.40-6.50); Neutrophils % (auto) 73.8 %; Platelet Count 192 K/uL (130-400); RDW Coefficient of Variation 13.5 % (11.5-14.5); RDW Standard Deviation 43.4 fL (36.4-46.3); Red Blood Count 4.44 M/uL (4.20-5.40); White Blood Count 11.36 K/ul (4.8-10.8)
[2022-08-05 07:10] LABS: BUN Creatinine Ratio 12.2 (10-20); Calcium 8.9 mg/dl (8.5-10.1); Creatinine Clr Calc Pharmacy 40.3 ml/min; Est GFR (African American) 54.7 ml/min; Est GFR (Non-African American) 47.2 ml/min; Potassium 3.4 mmol/L (3.5-5.1)
[2022-08-05] MEDS: amLODIPine BESYLATE 5 MG TAB PO SCH (07:26)
[2022-08-05] MEDS: SERTRALINE HCL 100 MG TABLET PO SCH (07:27)
[2022-08-05] MEDS: ENOXAPARIN INJ 40 MG/0.4 ML SYR SQ SCH (07:27)
[2022-08-05] MEDS: PROMETHAZINE HCL 12.5 MG in SODIUM CHLORIDE 0.9% 50 ML IV PRN (08:48)
--- NOTE | 2022-08-05 10:38 | Surgery Progress Note ---
Date of Service August 05, 2022 Assessment & Plan (1) Colon cancer: Plan: likely ileus NGT repalced KUB in AM IVF ambualte Present on Admission?: Yes Admission and Anticipated Discharge Date Admission Date: August 02, 2022 Subjective multiple episodes of emesis this AM some scant flatuus NGT replaced and patient feels better likely out soon but await significant bowel function Review of Systems Constitutional: no fever and no chills Respiratory: no cough and no dyspnea Cardiovascular: no chest pain Gastrointestinal: + abdominal pain, + nausea, + vomiting and + change in bowel habits Genitourinary: no dysuria Musculoskeletal: no back pain Neurologic: no generalized weakness Psychiatric: no behavioral changes Physical Exam Constitutional: WD/WN, vitals as above Respiratory: normal respiratory effort, lungs clear to auscultation Cardiovascular: RRR, no murmur, no edema Gastrointestinal (Abdomen): Inspection/Auscultation: abdomen normal to inspection, + abdomen distended and normal bowel sounds Percussion/Palpation: + abdomen tender and abdomen soft; no guarding and abdomen not rigid Musculoskeletal: Head/Neck/Chest: normocephalic and head atraumatic Skin: no rashes, warm and dry Results & Data ([facility]) Vital Signs (Past 12 Hours) Vital Signs Temp Pulse Resp BP Pulse Ox O2 Del Method 08/05/22 07:50 36.7 C 68 17 120/66 94 Room Air
--- NOTE | 2022-08-05 10:39 | XRay Report ---
XR chest 1V portable HISTORY: 71 years-old Female ngt verify placement status post placement of an enteric tube COMPARISON: Chest CT 07/17/2022 TECHNIQUE: AP view of the chest FINDINGS: Cardiac silhouette is enlarged. Mild left hemidiaphragmatic elevation. No pneumothorax, pleural effus ion or overt pulmonary edema. Mild subsegmental bibasilar atelectasis. An enteric tube is noted with distal tip projected superiorly within the gastric fundus. Bones appear grossly intact. IMPRESSION: 1. Status post placement of an enteric tube, distal tip projected superiorly within the gastric fundu s. 2. Cardiomegaly without acute process. ACT 112: Negative or not required by law. The above report was generated using voice recognition software. It may contain grammatical, syntax o r spelling errors. Electronically signed by: Celestino Fernando M.D. 08/05/2022 10:37 AM
[2022-08-05] MEDS ORDERED: POTASSIUM CHLORIDE CRTAB 20 MEQ TABCR PO STA (17:45)
[2022-08-05] MEDS: ATENOLOL 50 MG TABLET PO SCH (20:56)
[2022-08-06] MEDS: LACTATED RINGER'S 1,000 ML IV SCH ×2 (01:04→11:53)
[2022-08-06 08:17] LABS: Basophils # (auto) 0.03 K/uL (0-0.2); Basophils % (auto) 0.3 %; Eosinophils # (auto) 0.26 K/uL (0-0.50); Eosinophils % (auto) 2.3 %; Hematocrit (blood only) 39.8 % (37.0-47.0); Hemoglobin 13.1 g/dl (12.0-16.0); Immature Granulocytes # (auto) 0.03 K/uL (0.01-0.20); Immature Granulocytes % (auto) 0.3 %; Lymphocytes # (auto) 2.09 K/uL (1.2-3.4); Lymphocytes % (auto) 18.2 %; Mean Corpuscular Hemoglobin 29.2 pg (25.0-34.0); Mean Corpuscular Hgb Conc 32.9 g/dL (32.0-36.0); Mean Corpuscular Volume 88.8 fL (80.0-100.0); Mean Platelet Volume 11.6 fL (9.4-12.4); Monocytes % (auto) 8.7 %; Neutrophils # (auto) 8.05 K/uL (1.40-6.50); Neutrophils % (auto) 70.2 %; Platelet Count 221 K/uL (130-400); RDW Coefficient of Variation 13.6 % (11.5-14.5); RDW Standard Deviation 44.3 fL (36.4-46.3); Red Blood Count 4.48 M/uL (4.20-5.40); White Blood Count 11.46 K/ul (4.8-10.8)
[2022-08-06 08:31] LABS: BUN Creatinine Ratio 14.9 (10-20); Calcium 9.4 mg/dl (8.5-10.1); Creatinine Clr Calc Pharmacy 34.6 ml/min; Est GFR (African American) 45.4 ml/min; Est GFR (Non-African American) 39.2 ml/min; Potassium 3.6 mmol/L (3.5-5.1)
[2022-08-06] MEDS ORDERED: ACETAMINOPHEN 325 MG TAB PO PRN (08:43)
--- NOTE | 2022-08-06 08:49 | XRay Report ---
KUB HISTORY: Acute nausea with vomiting nausea and vomiting COMPARISON: CT abdomen pelvis 07/17/2022 FINDINGS: Surgical suture material the right abdomen. Skin radha are also noted projected over the abdomen.r air-filled mildly dilated loops of small bowel within the abdominal left or quadrant measur e up to 4.1 cm. Air-filled large bowel measures up to 5.7 cm. Air-filled distended stomach. No renal calculi. No ureteral calculi. No pneumoperitoneum or pneumatosis. No fracture. IMPRESSION: Gastric distention with air-filled loops of large and small bowel and mild small bowel distention. Fi ndings favor postoperative ileus. Follow-up recommended. ACT 112: Negative or not required by law. The above report was generated using voice recognition software. It may contain grammatical, syntax o r spelling errors. Electronically signed by: Celestino Fernando M.D. 08/06/2022 8:47 AM
[2022-08-06] MEDS: SERTRALINE HCL 100 MG TABLET PO SCH (09:24)
[2022-08-06] MEDS: amLODIPine BESYLATE 5 MG TAB PO SCH (09:24)
[2022-08-06] MEDS: ENOXAPARIN INJ 40 MG/0.4 ML SYR SQ SCH (09:25)
--- NOTE | 2022-08-06 09:30 | Surgery Progress Note ---
Date of Service August 06, 2022 Assessment & Plan (1) Colon cancer: Plan: POD#4 laparoscopic R hemicolectomy WBC 11. vitals stable events noted over the wknd, had some emesis and NGT placed and then fell out She denies any nausea this AM. Having multiple loose BMs. Did not like the CLD. Will trial patient on fulls and see how she fairs, will back down if any worsening n/v Will start questran to help improve patient's multiple loose BM's, reporting upwards of 10/day at this point Some serous drainage with surrounding erythema to LLQ abdomen and incision...will start on IV abx and monitor for now Continue ongoing ambulation, pulmonary toilet Pain controlled As above. Patient overall feeling well this morning. She has had many loose bowel movements. Her nausea seems to have resolved. We will advance her diet and add Questran. Admission and Anticipated Discharge Date Admission Date: August 02, 2022 Subjective Patient feeling better this AM than yesterday. No reports of nausea. The clears were not appetizing to her and she thinks this may have worsened her nausea over the wknd. She reports having multiple loose bowel movements. Physical Exam Physical Exam: awake/alert, no distress Respiratory: normal respiratory effort Gastrointestinal (Abdomen): Inspection/Auscultation: + abdominal surgical incision (incisions intact with radha. ); abdomen not distended some serous drainage noted to LLQ incision with some surrounding redness Results & Data ([facility]) Vital Signs (Past 12 Hours) Vital Signs Temp Pulse Resp BP BP Pulse Ox O2 Del Method 08/06/22 09:23 117/63 08/06/22 07:56 36.7 C 62 16 107/65 95 Room Air 08/06/22 07:15 Room Air PG Care Time/CCT Total # of Minutes Spent Total Time Spent with Patient: Total time spent is greater than 50% in coordination of care (as documented) at patient's floor/unit and/or counseling patient: Coding Level of Care Code 48754 Post Operative Follow-Up Diagnoses Colon cancer C18.9
[2022-08-06] MEDS ORDERED: AMPICILLIN/SULBACTAM SOD 3,000 MG in 0.9 % SODIUM CHLORIDE 100 ML IV SCH (10:00)
[2022-08-06] MEDS ORDERED: PIPERACILLIN/TAZOBACTAM 3.375 GM (over 30 mins) IV ONE (10:00)
[2022-08-06] MEDS: CHOLESTYRAMINE LIGHT 4 GM PKT PO SCH ×2 (10:30→21:32)
[2022-08-06] MEDS: PIPERACILLIN/TAZOBACTAM 3.375 GM in DEXTROSE 5% 100 ML IV SCH (16:03)
[2022-08-06] MEDS: ATENOLOL 50 MG TABLET PO SCH (21:32)
[2022-08-06] MEDS: ONDANSETRON INJ 2 MG/ML 2 ML VIAL IV PRN (22:50)
[2022-08-07] MEDS: PIPERACILLIN/TAZOBACTAM 3.375 GM in DEXTROSE 5% 100 ML IV SCH ×4 (00:51→23:50)
[2022-08-07] MEDS: LACTATED RINGER'S 1,000 ML IV SCH (00:56)
[2022-08-07 07:21] LABS: Basophils # (auto) 0.03 K/uL (0-0.2); Basophils % (auto) 0.3 %; Eosinophils # (auto) 0.34 K/uL (0-0.50); Eosinophils % (auto) 3.7 %; Hematocrit (blood only) 37.6 % (37.0-47.0); Hemoglobin 12.5 g/dl (12.0-16.0); Immature Granulocytes # (auto) 0.01 K/uL (0.01-0.20); Immature Granulocytes % (auto) 0.1 %; Lymphocytes # (auto) 2.29 K/uL (1.2-3.4); Lymphocytes % (auto) 25.1 %; Mean Corpuscular Hemoglobin 29.1 pg (25.0-34.0); Mean Corpuscular Hgb Conc 33.2 g/dL (32.0-36.0); Mean Corpuscular Volume 87.4 fL (80.0-100.0); Mean Platelet Volume 11.9 fL (9.4-12.4); Monocytes # (auto) 1.04 K/uL (0.11-0.59); Monocytes % (auto) 11.4 %; Neutrophils # (auto) 5.42 K/uL (1.40-6.50); Neutrophils % (auto) 59.4 %; Platelet Count 202 K/uL (130-400); RDW Coefficient of Variation 13.5 % (11.5-14.5); White Blood Count 9.13 K/ul (4.8-10.8)
[2022-08-07 07:45] LABS: BUN Creatinine Ratio 13.6 (10-20); Calcium 9.3 mg/dl (8.5-10.1); Creatinine Clr Calc Pharmacy 35.1 ml/min; Est GFR (African American) 46.3 ml/min; Est GFR (Non-African American) 39.9 ml/min; Potassium 3.8 mmol/L (3.5-5.1)
[2022-08-07] MEDS: amLODIPine BESYLATE 5 MG TAB PO SCH (08:13)
[2022-08-07] MEDS: ENOXAPARIN INJ 40 MG/0.4 ML SYR SQ SCH (08:14)
[2022-08-07] MEDS: SERTRALINE HCL 100 MG TABLET PO SCH (08:14)
--- NOTE | 2022-08-07 09:00 | Surgery Progress Note ---
Date of Service August 07, 2022 Assessment & Plan (1) Colon cancer: Plan: POD#5 laparoscopic R hemicolectomy WBC 9.1. vitals stable Continues to have multiple BMs. Remains on questran. Trial advancing to low fiber diet. d/c ivf On zosyn for redness surrounding left lower abdomen, that is improving Abdominal dressing changes daily and as needed if becomes saturated Continue ongoing ambulation, pulmonary toilet Pain controlled Possible discharge to home tomorrow if continues to progress well As above. Overall doing well. We discussed her pathology report. We will advance her to low residue diet. Potential discharge tomorrow. Admission and Anticipated Discharge Date Admission Date: August 02, 2022 Subjective Patient still having multiple loose BMs. Had some nausea taking the questran, but no vomiting. Tolerating full liquids otherwise. Pain controlled. Physical Exam Physical Exam: awake/alert, no distress Respiratory: normal respiratory effort Gastrointestinal (Abdomen): Inspection/Auscultation: + abdominal surgical incision (incisions intact with radha); abdomen not distended Percussion/Palpation: abdomen soft some serosang drainage to lap incisions at Left abdomen. redness surrounding left lower abdomen improving Results & Data ([facility]) Vital Signs (Past 12 Hours) Vital Signs Temp Pulse Resp BP BP Pulse Ox O2 Del Method 08/07/22 07:02 36.6 C 65 16 126/70 94 Room Air 08/06/22 21:28 36.9 C 62 16 143/74 H 94 Room Air PG Care Time/CCT Total # of Minutes Spent Total Time Spent with Patient: Total time spent is greater than 50% in coordination of care (as documented) at patient's floor/unit and/or counseling patient: Coding Level of Care Code 75682 Post Operative Follow-Up Diagnoses Colon cancer C18.9
[2022-08-07] MEDS: CHOLESTYRAMINE LIGHT 4 GM PKT PO SCH ×2 (10:28→21:01)
[2022-08-07] MEDS: ATENOLOL 50 MG TABLET PO SCH (21:00)
[2022-08-08] MEDS: ONDANSETRON INJ 2 MG/ML 2 ML VIAL IV PRN (03:41)
[2022-08-08 07:42] LABS: Basophils # (auto) 0.04 K/uL (0-0.2); Basophils % (auto) 0.4 %; Eosinophils % (auto) 1.9 %; Hematocrit (blood only) 39.4 % (37.0-47.0); Hemoglobin 13.2 g/dl (12.0-16.0); Immature Granulocytes # (auto) 0.03 K/uL (0.01-0.20); Immature Granulocytes % (auto) 0.3 %; Lymphocytes # (auto) 1.44 K/uL (1.2-3.4); Lymphocytes % (auto) 13.6 %; Mean Corpuscular Hemoglobin 29.6 pg (25.0-34.0); Mean Corpuscular Hgb Conc 33.5 g/dL (32.0-36.0); Mean Corpuscular Volume 88.3 fL (80.0-100.0); Mean Platelet Volume 10.9 fL (9.4-12.4); Monocytes # (auto) 1.23 K/uL (0.11-0.59); Monocytes % (auto) 11.6 %; Neutrophils # (auto) 7.65 K/uL (1.40-6.50); Neutrophils % (auto) 72.2 %; Platelet Count 226 K/uL (130-400); RDW Coefficient of Variation 13.6 % (11.5-14.5); RDW Standard Deviation 43.5 fL (36.4-46.3); Red Blood Count 4.46 M/uL (4.20-5.40); White Blood Count 10.59 K/ul (4.8-10.8)
[2022-08-08 07:57] LABS: BUN Creatinine Ratio 13.4 (10-20); Calcium 10.1 mg/dl (8.5-10.1); Creatinine Clr Calc Pharmacy 31.1 ml/min; Est GFR (Non-African American) 34.5 ml/min; Potassium 3.8 mmol/L (3.5-5.1)
[2022-08-08] MEDS: PIPERACILLIN/TAZOBACTAM 3.375 GM in DEXTROSE 5% 100 ML IV SCH ×3 (08:21→23:55)
[2022-08-08] MEDS: SERTRALINE HCL 100 MG TABLET PO SCH (08:21)
[2022-08-08] MEDS: amLODIPine BESYLATE 5 MG TAB PO SCH (08:21)
[2022-08-08] MEDS: ENOXAPARIN INJ 40 MG/0.4 ML SYR SQ SCH (08:21)
--- NOTE | 2022-08-08 09:04 | Surgery Progress Note ---
Date of Service August 08, 2022 Assessment & Plan (1) H/O hemicolectomy: Plan: Likely postoperative ileus. We will restart some IV fluids and back her down to clear liquids and check a KUB. Not ready for discharge yet. Admission and Anticipated Discharge Date Admission Date: August 02, 2022 Subjective Patient seen. Had a rough night. Had some nausea and vomiting overnight. She does continue to have some bowel movements. Currently feeling much better Physical Exam Physical Exam: Alert. No acute distress Abdomen soft nontender. Mild distention. Results & Data ([facility]) Vital Signs (Past 12 Hours) Vital Signs Temp Pulse Resp BP Pulse Ox O2 Del Method 08/08/22 07:05 36.6 C 60 16 145/77 H 96 Room Air PG Care Time/CCT Total # of Minutes Spent Total Time Spent with Patient: Total time spent is greater than 50% in coordination of care (as documented) at patient's floor/unit and/or counseling patient: Coding Level of Care Code 02588 Post Operative Follow-Up Diagnoses H/O hemicolectomy Z90.49
[2022-08-08] MEDS: CHOLESTYRAMINE LIGHT 4 GM PKT PO SCH ×2 (09:39→22:22)
[2022-08-08] MEDS: SODIUM CHLORIDE 0.9% 500 ML IV SCH ×4 (09:40→23:59)
--- NOTE | 2022-08-08 15:37 | XRay Report ---
KUB CLINICAL HISTORY: Ileus. FINDINGS: 2 AP supine abdominal radiographs are compared to study dated 08/06/2022 and correlate with a bdominal CT dated 07/17/2022. Skin clips and a presumed drain projects in the right upper quadrant. Ad ditional skin clips project over the lower abdomen and pelvis. Suture material projects of the right mid abdomen. Again seen are distended and gas-filled loops of small bowel. These measure up to 4.5 cm in diameter. The degree of distention has somewhat improved from previous. No evidence of intraperit loaiza free air is seen on these supine images. There are no abnormal abdominal calcifications. The sk eletal structures are osteopenic and appear intact. There is lumbosacral spondylosis. IMPRESSION: 1. Gaseous distention of the small bowel loops has somewhat improved as compared to 08/06/2022 and like ly represents a postoperative ileus. Obstruction is considered less likely and clinical correlation w ill be required. 2. Postsurgical changes as above. Electronically signed by: Piter Zayas M.D. 08/08/2022 3:35 PM
[2022-08-08] MEDS: ATENOLOL 50 MG TABLET PO SCH (21:50)
[2022-08-09] MEDS: SODIUM CHLORIDE 0.9% 500 ML IV SCH ×3 (05:29→12:48)
[2022-08-09] MEDS: SERTRALINE HCL 100 MG TABLET PO SCH (08:48)
[2022-08-09] MEDS: PIPERACILLIN/TAZOBACTAM 3.375 GM in DEXTROSE 5% 100 ML IV SCH ×2 (08:48→17:06)
[2022-08-09] MEDS: amLODIPine BESYLATE 5 MG TAB PO SCH (08:48)
[2022-08-09] MEDS: ENOXAPARIN INJ 40 MG/0.4 ML SYR SQ SCH (08:48)
--- NOTE | 2022-08-09 10:12 | Surgery Progress Note ---
Date of Service August 09, 2022 Assessment & Plan (1) H/O hemicolectomy: Plan: Improving. We will advance to full liquids. If she tolerates we can give her low residue diet again tomorrow with possible discharge tomorrow afternoon. She agrees with the plan. Continue ambulation. Admission and Anticipated Discharge Date Admission Date: August 02, 2022 Subjective Patient seen. She is feeling much better than yesterday. No further nausea or vomiting although she does not have much appetite. No additional bowel movements. Physical Exam Physical Exam: Alert. No acute distress Abdomen is soft. Less distention. Incisions look good Results & Data ([facility]) Vital Signs (Past 12 Hours) Vital Signs Temp Pulse Resp BP Pulse Ox O2 Del Method 08/09/22 07:00 Room Air 08/09/22 07:04 36.6 C 68 16 133/67 97 Room Air PG Care Time/CCT Total # of Minutes Spent Total Time Spent with Patient: Total time spent is greater than 50% in coordination of care (as documented) at patient's floor/unit and/or counseling patient: Coding Level of Care Code 24408 Post Operative Follow-Up Diagnoses H/O hemicolectomy Z90.49
[2022-08-09] MEDS: CHOLESTYRAMINE LIGHT 4 GM PKT PO SCH ×2 (10:30→22:24)
[2022-08-09 11:16] LABS: Basophils # (auto) 0.03 K/uL (0-0.2); Basophils % (auto) 0.3 %; Eosinophils # (auto) 0.14 K/uL (0-0.50); Eosinophils % (auto) 1.2 %; Hematocrit (blood only) 40.1 % (37.0-47.0); Immature Granulocytes # (auto) 0.04 K/uL (0.01-0.20); Immature Granulocytes % (auto) 0.3 %; Lymphocytes # (auto) 1.51 K/uL (1.2-3.4); Lymphocytes % (auto) 13.1 %; Mean Corpuscular Hemoglobin 29.4 pg (25.0-34.0); Mean Corpuscular Hgb Conc 32.4 g/dL (32.0-36.0); Mean Corpuscular Volume 90.7 fL (80.0-100.0); Monocytes # (auto) 0.87 K/uL (0.11-0.59); Monocytes % (auto) 7.6 %; Neutrophils # (auto) 8.93 K/uL (1.40-6.50); Neutrophils % (auto) 77.5 %; Platelet Count 230 K/uL (130-400); RDW Coefficient of Variation 13.9 % (11.5-14.5); RDW Standard Deviation 46.9 fL (36.4-46.3); Red Blood Count 4.42 M/uL (4.20-5.40); White Blood Count 11.52 K/ul (4.8-10.8)
[2022-08-09 11:45] LABS: BUN Creatinine Ratio 15.7 (10-20); Calcium 8.5 mg/dl (8.5-10.1); Creatinine Clr Calc Pharmacy 30.3 ml/min; Est GFR (African American) 38.7 ml/min; Est GFR (Non-African American) 33.4 ml/min; Potassium 3.6 mmol/L (3.5-5.1)
[2022-08-09] MEDS: NSS + 20MEQ KCL 20 MEQ/1,000 ML BAG IV SCH ×2 (12:47→22:27)
[2022-08-09] MEDS: ATENOLOL 50 MG TABLET PO SCH (21:36)
[2022-08-10] MEDS: PIPERACILLIN/TAZOBACTAM 3.375 GM in DEXTROSE 5% 100 ML IV SCH ×3 (00:31→16:01)
[2022-08-10] MEDS: NSS + 20MEQ KCL 20 MEQ/1,000 ML BAG IV SCH ×2 (07:56→12:22)
[2022-08-10] MEDS: SERTRALINE HCL 100 MG TABLET PO SCH (08:25)
[2022-08-10] MEDS: amLODIPine BESYLATE 5 MG TAB PO SCH (08:25)
[2022-08-10] MEDS: ENOXAPARIN INJ 40 MG/0.4 ML SYR SQ SCH (08:25)
[2022-08-10] MEDS: CHOLESTYRAMINE LIGHT 4 GM PKT PO SCH ×2 (10:37→22:00)
[2022-08-10] MEDS ORDERED: FLUCONAZOLE 100 MG/50 ML BAG IV ONE (10:52)
--- NOTE | 2022-08-10 11:01 | Surgery Progress Note ---
Date of Service August 10, 2022 Assessment & Plan (1) H/O hemicolectomy: Plan: Initially I was can let her go home today however after the small bout of emesis I do believe we should keep her another day. We will start Diflucan for the oral candidiasis which is likely contributing to her nausea. Hopefully she will be feeling better and if so can be discharged over the weekend. Dr. Angulo covering for the weekend. (2) Oral candidiasis: Admission and Anticipated Discharge Date Admission Date: August 02, 2022 Subjective Patient seen. Feeling a little bit weak but continues to improve. She tolerated full liquids and denied nausea initially. However after finishing rounds the nurse brought to our attention that she was given a low residue diet and had a little bit of emesis. Physical Exam Physical Exam: Alert and oriented no acute distress She does have oral leukoplakia consistent with an oral candidiasis Abdomen is soft. Incision is clean dry with no sign of infection. Results & Data ([facility]) Vital Signs (Past 12 Hours) Vital Signs Temp Pulse Resp BP Pulse Ox O2 Del Method 08/10/22 07:32 36.5 C 63 16 153/77 H 97 Room Air PG Care Time/CCT Total # of Minutes Spent Total Time Spent with Patient: Total time spent is greater than 50% in coordination of care (as documented) at patient's floor/unit and/or counseling patient: Coding Level of Care Code 06499 Post Operative Follow-Up Diagnoses H/O hemicolectomy Z90.49 Oral candidiasis B37.0
[2022-08-10] MEDS ORDERED: oxyCODONE HCL IR 5 MG TAB (IMMEDIATE RELEASE) PO PRN ×2 (12:06)
[2022-08-10] MEDS ORDERED: PROMETHAZINE HCL 12.5 MG in SODIUM CHLORIDE 0.9% 50 ML IV PRN (12:06)
[2022-08-10] MEDS ORDERED: FLUCONAZOLE 200 MG/100 ML BAG IV ONE (12:15)
[2022-08-10] MEDS: NYSTATIN SUSP 500,000 U/5 ML UDC PO SCH ×3 (12:57→20:02)
[2022-08-10] MEDS: ATENOLOL 50 MG TABLET PO SCH (20:02)
[2022-08-11] MEDS: NSS + 20MEQ KCL 20 MEQ/1,000 ML BAG IV SCH (00:50)
[2022-08-11] MEDS: PIPERACILLIN/TAZOBACTAM 3.375 GM in DEXTROSE 5% 100 ML IV SCH ×2 (00:50→09:39)
[2022-08-11 06:39] LABS: Basophils # (auto) 0.02 K/uL (0-0.2); Basophils % (auto) 0.2 %; Eosinophils # (auto) 0.16 K/uL (0-0.50); Eosinophils % (auto) 1.8 %; Hemoglobin 12.1 g/dl (12.0-16.0); Immature Granulocytes # (auto) 0.04 K/uL (0.01-0.20); Immature Granulocytes % (auto) 0.4 %; Lymphocytes # (auto) 1.73 K/uL (1.2-3.4); Lymphocytes % (auto) 19.5 %; Mean Corpuscular Hemoglobin 29.2 pg (25.0-34.0); Mean Corpuscular Hgb Conc 32.7 g/dL (32.0-36.0); Mean Corpuscular Volume 89.2 fL (80.0-100.0); Mean Platelet Volume 11.2 fL (9.4-12.4); Monocytes # (auto) 1.08 K/uL (0.11-0.59); Monocytes % (auto) 12.1 %; Neutrophils # (auto) 5.86 K/uL (1.40-6.50); Platelet Count 240 K/uL (130-400); RDW Coefficient of Variation 14.4 % (11.5-14.5); RDW Standard Deviation 46.6 fL (36.4-46.3); Red Blood Count 4.15 M/uL (4.20-5.40); White Blood Count 8.89 K/ul (4.8-10.8)
[2022-08-11 07:38] LABS: BUN Creatinine Ratio 11.5 (10-20); Calcium 8.3 mg/dl (8.5-10.1); Est GFR (African American) 50.9 ml/min; Est GFR (Non-African American) 43.9 ml/min; Potassium 4.5 mmol/L (3.5-5.1)
--- NOTE | 2022-08-11 08:28 | Surgery Progress Note ---
Date of Service August 11, 2022 Assessment & Plan (1) H/O hemicolectomy: Plan: 08/11/2022 Wendy is POD # 9 s/p Laparoscopic Right Hemicolectomy. Yesterday had issue with nausea and vomiting after breakfast. Reports that she had no issues with nausea for the remainder of the day. She does report that she is hungry this morning. Will attempt to advance from full liquids to low fiber diet. Advised to go slow with diet. She is moving her bowels and reports some expected abdominal pain at incision sites. She is interested in discharge today with plans to go to her sister's house for a few days while she recovers. If she tolerates low fiber diet, then can possibly go home later today. Will check back around lunchtime. 08/10/2022 Initially I was can let her go home today however after the small bout of emesis I do believe we should keep her another day. We will start Diflucan for the oral candidiasis which is likely contributing to her nausea. Hopefully she will be feeling better and if so can be discharged over the weekend. Dr. Angulo covering for the weekend. (2) Oral candidiasis: Admission and Anticipated Discharge Date Admission Date: August 02, 2022 Supervising Physician Co-Signing Physician Notes Dr. Angulopatient stable and making slow progress Subjective Wendy is resting in bed, she reports that she is feeling much better than yesterday. She tolerated full liquids for dinner yesterday without nausea. Reports that she is hungry this morning. Review of Systems Constitutional: no fever and no chills Gastrointestinal: no nausea Physical Exam Physical Exam: Alert and oriented no acute distress She does have oral leukoplakia consistent with an oral candidiasis Abdomen is soft. Abdominal incision is clean, dry, intact, and well- approximated. There are no signs of infection at incision sites. Results & Data ([facility]) Vital Signs (Past 12 Hours) Vital Signs Temp Pulse Resp BP Pulse Ox O2 Del Method 08/11/22 07:25 36.7 C 57 L 16 123/72 97 Room Air PG Care Time/CCT Total # of Minutes Spent Total Time Spent with Patient: Total time spent is greater than 50% in coordination of care (as documented) at patient's floor/unit and/or counseling patient: Coding Level of Care Code None Diagnoses H/O hemicolectomy Z90.49 Oral candidiasis B37.0
[2022-08-11] MEDS ORDERED: FLUCONAZOLE 100 MG/50 ML BAG IV SCH (09:00)
[2022-08-11] MEDS: NYSTATIN SUSP 500,000 U/5 ML UDC PO SCH (09:09)
[2022-08-11] MEDS: amLODIPine BESYLATE 5 MG TAB PO SCH (09:16)
[2022-08-11] MEDS: ENOXAPARIN INJ 40 MG/0.4 ML SYR SQ SCH (09:16)
[2022-08-11] MEDS: SERTRALINE HCL 100 MG TABLET PO SCH (09:17)
[2022-08-11] MEDS: CHOLESTYRAMINE LIGHT 4 GM PKT PO SCH (09:18)
--- NOTE | 2022-08-11 12:47 | Surgery Progress Note ---
Date of Service August 11, 2022 Assessment & Plan (1) H/O hemicolectomy: Plan: 08/11/2022 12:46PM Patient is tolerating low fiber diet well. She feels that she is ready for discharge. Discharge instructions reviewed. Return precautions reviewed. 08/11/2022 Wendy is POD # 9 s/p Laparoscopic Right Hemicolectomy. Yesterday had issue with nausea and vomiting after breakfast. Reports that she had no issues with nausea for the remainder of the day. She does report that she is hungry this morning. Will attempt to advance from full liquids to low fiber diet. Advised to go slow with diet. She is moving her bowels and reports some expected abdominal pain at incision sites. She is interested in discharge today with plans to go to her sister's house for a few days while she recovers. If she tolerates low fiber diet, then can possibly go home later today. Will check back around lunchtime. 08/10/2022 Initially I was can let her go home today however after the small bout of emesis I do believe we should keep her another day. We will start Diflucan for the oral candidiasis which is likely contributing to her nausea. Hopefully she will be feeling better and if so can be discharged over the weekend. Dr. Angulo covering for the weekend. (2) Oral candidiasis: Admission and Anticipated Discharge Date Admission Date: August 02, 2022 Subjective Wendy is sitting up and eating lunch. She reports that she tolerated her breakfast and is tolerating her lunch well. She feels that she is read for discharge. Review of Systems Constitutional: no fever and no chills Gastrointestinal: no nausea Physical Exam Physical Exam: Alert and oriented no acute distress She does have oral leukoplakia consistent with an oral candidiasis Abdomen is soft. Abdominal incision is clean, dry, intact, and well- approximated. There are no signs of infection at incision sites. Results & Data ([facility]) Vital Signs (Past 12 Hours) Vital Signs Temp Pulse Resp BP Pulse Ox O2 Del Method 08/11/22 07:25 36.7 C 57 L 16 123/72 97 Room Air PG Care Time/CCT Total # of Minutes Spent Total Time Spent with Patient: Total time spent is greater than 50% in coordination of care (as documented) at patient's floor/unit and/or counseling patient: Coding Level of Care Code 25537 Post Operative Follow-Up Diagnoses H/O hemicolectomy Z90.49 Oral candidiasis B37.0
--- NOTE | 2022-08-17 15:45 | Discharge Summary ---
Date of Service August 11, 2022 Principal Diagnosis colon cancer s/p right hemicolectomy oral candidiasis Discharge Exam awake/alert, no distress Respiratory normal respiratory effort Gastrointestinal (Abdomen) Inspection/Auscultation: + abdominal surgical incision (incisions intact with radha); abdomen not distended Percussion/Palpation: abdomen soft Discharge Data Allergies Allergy/AdvReac Type Severity Reaction Status Date / Time amoxicillin [From Augmentin] AdvReac Mild Nausea Verified 08/02/22 08:36 clavulanic acid AdvReac Mild Nausea Verified 08/02/22 08:36 [From Augmentin] Procedures Performed Operation Date: 08/02/22 10:05 Actual Procedures p Laparoscopic Right Hemicolectomy(Right) - Jed Watson, DO Hospital Course (1) H/O hemicolectomy: This is a 71yF with a PMH of colon cancer who presented to the [facility] on 08/02/22 for elective surgical intervention. She underwent a laparoscopic right hemicolectomy with Dr. Watson. The patient tolerated the procedure well,see op note for full details. She recovered in the PACU and was transferred to the med/surg unit in stable condition. Post operatively the patient was started on a clear liquid diet. The patient did develop a bit of an ileus and vomited with diet advancement requiring an NGT for a short period of time and backing down of her diet during her stay. Diet was re-instated slowly as she tolerated. She did have quick return of bowel function in the form of loose stools which improved over time. She was noted to have oral thrush which may have cause some of her nausea/gi issues and she was started on diflucan in house with transition to nystatin swish and swallow for home. During her stay she had some serous drainage from her LLQ incision with some surrounding redness she was started on IV abx for. This greatly improved during her hospitalization and did not require further antibiotic therapy at discharge. Activity was encouraged throughout and she was on DVT prophylaxis. Her pain was controlled with IV with transition to orals without issues. On 08/11 the patient was tolerating a low fiber diet, incisions c/d/i without signs of infection, her pain was controlled, and she was having + bowel function. She was deemed stable for discharge to home with plans to follow up in clinic with Dr. Watson in 1-2 weeks. (2) Colon cancer: (3) Oral candidiasis: Total Time Total Time Spent Total Time Spent (In Minutes): 20 Discharge Plan Discharge Items Patient Disposition: Home - Self-Care Reason For Visit: Colon Cancer Discharge Diagnosis: right colon resection Activity: Per Instructions section Lifting: No more than 10 pounds Bathing Comment: may shower; no soaking in tubs/pools Exercise/Sports: Wait until after follow-up appointment Driving/Machine Use: no driving while taking narcotics for pain Non-emergency contact: Surgeon Call non-emergency contact if: you have any medication questions, your symptoms worsen, your pain is not controlled, your pain is concerning for you, you have a fever, your temperature is above 101.5, your wound has increased redness, your wound has increased drainage and your wound pain has increased Follow-up/Referrals: Flor Hernandez MD [Primary Care Provider] - Jed Watson DO [Surgeon] - 08/27/22 9:45 am (Please call to schedule follow up in clinic within 2 weeks ) Diet: Low Fiber Addtl Attending Provider Instructions: You have surgical radha in place that will be removed at one of your follow up appointments You may continue to cover the incisions where you have had some drainage daily and as needed. Cover with dry gauze and medipore tape. If you do not require the narcotic Percocet for pain you may take plain Tylenol and/or Ibuprofen purchased over the counter. do not take plain Tylenol and Percocet together as they both contain Acetaminophen and you should not exceed >3grams of Acetaminophen within a 24 hour time period Continue on a low fiber diet over the next few weeks you have been prescribed a mouth rinse called nystatin swish and swallow for treatment of your oral thrush Pending Studies at Discharge: Yes Studies:: surgical pathology Stand-Alone Forms: [facility], Pain - Opioid Pain Management, Smoking Cessation Medications and DC Order Prescriptions: New oxycodone-acetaminophen [Percocet] 5-325 mg tablet 1 - 2 tab PO .q4-6h PRN (Reason: pain, for initial therapy, max 6 tabs per d ay) Qty: 12 0RF Continued albuterol sulfate 90 mcg/actuation HFA aerosol inhaler 1 - 2 inh INH QID PRN (Reason: Shortness Of Breath) Qty: 8.5 2RF amlodipine 5 mg tablet 5 mg PO QAM Qty: 90 1RF furosemide 20 mg tablet 20 mg PO BID Qty: 180 3RF sertraline 100 mg tablet 100 mg PO QAM cholecalciferol (vitamin D3) 50 mcg (2,000 unit) capsule 50 mcg PO QAM simvastatin 20 mg tablet 20 mg PO HS losartan 100 mg tablet 100 mg PO HS No Action atenolol 50 mg tablet 50 mg PO HS Qty: 90 3RF alendronate 70 mg tablet See Rx Instructions .ROUTE .COMPLEX Qty: 12 0RF Dose Instruction: TAKE 1 TABLET BY MOUTH ONCE WEEKLY Rx Instructions: TAKE 1 TABLET BY MOUTH ONCE WEEKLY Discharge Orders: Discharge Order (Routine); Ordered 08/11/22 Ordered By: Gosia Miller/Other Patient Handouts: Low-Fiber Diet, Having Open Colon Surgery Admission Data Admit Date/Time: 08/02/22 12:51 Attending Provider: Jed Watson Admit Provider: Jed Watson Primary Care Provider: Flor Hernandez Other Interventions: Discharge Summary Assessment (RN) Last Done: 08/11/22 13:09 Coding Level of Care Code 87575 IN/OBS DISCH 30 MIN/LESS Diagnoses H/O hemicolectomy Z90.49 Colon cancer C18.9 Oral candidiasis B37.0
== END 2022-08-11 14:40 | disposition home or self-care (01) | DRG 330 ==
LOC: ASU 08:00 → 3N 12:51
DX: I12.9 Hypertensive chronic kidney disease with stage 1 through stage 4 chronic kidney disease, or unspecified chronic kidney disease; Z86.61 Personal history of infections of the central nervous system; E78.5 Hyperlipidemia, unspecified; B37.0 Candidal stomatitis; C37 Malignant neoplasm of thymus; J44.9 Chronic obstructive pulmonary disease, unspecified; F17.210 Nicotine dependence, cigarettes, uncomplicated; N18.30 Chronic kidney disease, stage 3 unspecified; C18.0 Malignant neoplasm of cecum